=== PATIENT | male | born 1945 | race Caucasian/White ===

== ENCOUNTER 2017-11-08 09:31 | Day surgery (SDC) | payer MEDICARE ==
[~2017-11-08] VITALS: Ht 185.4 cm; Wt 99.8 kg
[~2017-11-08 09:31] MED LIST: ANAS1 PO; CARV25 PO; CHOL10002 PO; FISH OIL 1,0001 EAC2 PO; LOSA50 PO; Norvasc2.5 MG PO; VITAMIN C500 MG PO
== END 2017-11-08 22:57 | disposition home or self-care (01) ==
LOC: ORSCMMR 09:31 → ORD 10:30 → ORSCMMR 10:30
PROVIDERS: Internal Medicine Gastroenterology
PROC: 0DBM8ZX Excision of Descending Colon, Via Natural or Artificial Opening Endoscopic, Diagnostic (ICD-10-PCS; principal; 2017-11-08 10:30)
PROC: 0DBN8ZX Excision of Sigmoid Colon, Via Natural or Artificial Opening Endoscopic, Diagnostic (ICD-10-PCS; principal; 2017-11-08 10:30)
PROC: 0DBP8ZX Excision of Rectum, Via Natural or Artificial Opening Endoscopic, Diagnostic (ICD-10-PCS; principal; 2017-11-08 10:30)
DX: Z12.11 Encounter for screening for malignant neoplasm of colon (principal); D12.4 Benign neoplasm of descending colon; D12.5 Benign neoplasm of sigmoid colon; K62.1 Rectal polyp; K57.30 Diverticulosis of large intestine without perforation or abscess without bleeding; Z86.010 Personal history of colon polyps; I10 Essential (primary) hypertension; G47.33 Obstructive sleep apnea (adult) (pediatric); Z79.899 Other long term (current) drug therapy
CPT/HCPCS: 88305; J2250; J3010; J7120

== ENCOUNTER 2018-09-11 08:06 | Inpatient (IN) | payer MEDICARE ==
[~2018-09-11] VITALS: Ht 182.9 cm; Wt 100.7 kg
[~2018-09-11 08:06] MED LIST changes: +ASCO500 PO; +DHEA PO
--- NOTE | 2018-09-11 10:02 | NUR ---
Ambulatory in Day Surgery Surgical site prepped with 2% Chlorhexidine cloth wipe. History, Chart, Medications and Allergies reviewed before start of procedure.Lungs clear T/O to Auscultation. Patient confirms NPO status and agrees with scheduled surgery. Patient reports completing Chlorhexadine shower X2 prior to admission to hospital. PT C/O OF PAIN IN RIGHT SHOULDER WHEN REACHING UP FOR PREP. WARM BLANKET AND EXTRA PILLOW PROVIDED. PAS AND CHIKI HOSE ON W/O DIFFICULTY. AT BEDSIDE. TWO PERSONAL BAGS STICKERED AND PLACED UNDER BED.
--- NOTE | 2018-09-12 04:52 | NUR ---
SHIFT SUMMARY: PT POD 1 R TSA. A&O X4. VS WNL. PAIN MANAGED WITH SCHED TORADOL AND TYLENOL. GIVEN OXY 10 MG TWICE PER EMAR. AQUACEL DRESSING, ICE PACK AND IMMOBILIZER PLACED TO R SHOULDER. SKUDS AND STOCKINGS IN PLACE. SALINE LOCKED. DRINKING PLENTY OF PO FLUIDS. JERRY REG DIET. DENIES ANY N/V. 1 SBA TO BATHROOM WITH WALKER. AMBULATED X2. JERRY ACTIVITY WELL. PT ENCOURAGED TO AMBULATE AND USE INSCENTIVE SPIROMETER. AT BEDSIDE. NO CONCERNS AT THIS TIME.
[2018-09-12 05:59] LABS: BASOPHILS ABSOLUTE AUTO 0.03 K/mm3 (0.00-0.23); BASOPHILS PERCENT AUTO 0 % (0-2); EOSINOPHILS ABSOLUTE AUTO 0.04 K/mm3 (0.00-0.68); EOSINOPHILS PERCENT AUTO 0 % (0-6); Hematocrit 37.8 % (37.0-53.0); Hemoglobin 12.8 g/dL (13.5-17.5); IMMATURE GRAN ABSOLUTE AUTO 0.05 K/mm3 (0.00-0.10); IMMATURE GRAN PERCENT AUTO 0 % (0-1); LYMPHOCYTES ABSOLUTE AUTO 1.25 K/mm3 (0.84-5.20); LYMPHOCYTES PERCENT AUTO 10 % (21-46); MONOCYTES PERCENT AUTO 8 % (4-13); Mean Corpuscular HGB 29.9 pg (26.0-34.0); Mean Corpuscular HGB Conc 33.9 g/dL (31.5-36.5); Mean Corpuscular Volume 88 fL (80-100); Mean Platelet Volume 10.4 fL (9.1-12.4); NEUTROPHILS PERCENT AUTO 80 % (41-73); Platelet Count 196 K/mm3 (150-400); RDW Coefficient Variation 13.5 % (11.7-14.2); RDW Standard Deviation 43.8 fL (35.1-46.3); Red Blood Cell Count 4.28 M/mm3 (4.30-5.90); White Blood Cell Count 12.07 K/mm3 (4.00-11.30)
[2018-09-12 06:18] LABS: Bun/Creatinine Ratio 17.1 (12.0-20.0); Calcium, Blood 7.6 mg/dL (8.5-10.1); Creatinine, Blood 1.29 mg/dL (0.60-1.20); Magnesium, Blood 2.5 mg/dL (1.6-2.4); Potassium, Blood 3.2 mmol/L (3.5-5.5)
--- NOTE | 2018-09-12 14:04 | NUR ---
09/12/18 1404 Dana Chew VERIFICATIONS: CHART EDIT.
--- NOTE | 2018-09-12 14:29 | NUR ---
PAIN MANAGEMENT DISCUSSED PAIN MANAGEMENT ISSUES WITH DR. SOLORZANO. INFORMED HER THAT IV DILAUIDID WAS GIVEN TO MANAGE PAIN AND TORADOL WAS HELD FOR ELEVATED CREATININE. VSS. WILL MONITOR UNTIL REPORT TO ONCOMING RN.
[2018-09-12] MEDS ORDERED: ACET500 PO (14:51)
[2018-09-12] MEDS ORDERED: OXYC5 PO (14:52)
--- NOTE | 2018-09-12 18:23 | NUR ---
patient discharged home with his . Frances Reyna RN
--- NOTE | 2018-09-12 18:29 | NUR ---
DISCHARGE PT WAS PROVIDED WITH WRITTEN AND VERBAL DISCHARGE INSTRUCTIONS. PT AND FAMILY VERBALIZED UNDERSTANDING AFTER QUESTIONS WERE ANSWERED. DRESSINGS PROVIDED. ESCORTED OUT IN W/C BY DION RUBIN.
== END 2018-09-12 18:24 | disposition home or self-care (01) | DRG 483 ==
LOC: SURS 08:06 → PRE IP 10:00 → SURS 18:12
PROVIDERS: ADMIT Orthopaedic Surgery
PROC: 0RRJ0JZ Replacement of Right Shoulder Joint with Synthetic Substitute, Open Approach (ICD-10-PCS; principal; 2018-09-11 10:00)
DX: M19.011 Primary osteoarthritis, right shoulder (principal); I10 Essential (primary) hypertension
CPT/HCPCS: 36415; 73030; 80048; 83735; 85025; 88300; 97110; 97116; 97162; 97166; 97535; C1776; J0171; J0690; J0735; J1170; J1885; J2250; J2405; J2795; J3010; J7120

== ENCOUNTER 2019-05-24 15:54 | Inpatient (IN) | payer MEDICARE ==
[~2019-05-24] VITALS: Ht 180 cm; Wt 106.7 kg
[~2019-05-24 15:54] MED LIST changes: +ACET500 PO; +OXYC5 PO
--- NOTE | 2019-05-28 07:42 | NUR ---
Ambulatory in Day Surgery History, Chart, Medications and Allergies reviewed before start of procedure.Patient confirms NPO status and agrees with scheduled surgery. Patient reports completing Chlorhexadine shower X2 prior to admission to hospital.Surgical site prepped with 2% Chlorhexidine cloth wipe. Lungs clear T/O to Auscultation. PT HEARING AIDS REMOVED AND IN PACU
--- NOTE | 2019-05-28 11:26 | NUR ---
PT ARRIVED TO UNIT VIA BED. AT BEDSIDE. PT REPORTS PAIN OF 5/10 BUT TOLERABLE. BULKY DRESSING IN PLACE C/D/I. POLAR CHILO ON. PATIENT RESTING IN BED 2L VIA NASAL CANULA. PATIENT AAOX4. RESPIRATORY IN ROOM TO SET UP PATIENTS CPAP MACHINE.
--- NOTE | 2019-05-28 16:42 | NUR ---
SHIFT SUMMARY S/P R TOTAL HIP. PATIENT IS ALERT AND ORIENTED X4, PAIN MANAGED PER EMAR WITH 1 TIME PRN GIVEN FOR BREAKTHROUGH PAIN. POLAR CHILO IN PLACE, BULKY DRESSING ON RIGHT HIP C/D/I. PATIENT TOLERATING PO WELL, DENIES NAUSEA. WORKED WITH THERAPY TODAY FWW, GB. CONTINUE TO ENCOURAGE AMBULATION. CPAP SET UP BY RESPIRATORY, PATIENT WEARS WHEN SLEEPING. RA OTHERWISE.
--- NOTE | 2019-05-28 18:18 | NUR ---
PT WAS ABLE TO STAND AND VOID. 500CC OUT
[2019-05-29 04:25] LABS: BASOPHILS ABSOLUTE AUTO 0.04 K/mm3 (0.00-0.23); BASOPHILS PERCENT AUTO 0 % (0-2); EOSINOPHILS ABSOLUTE AUTO 0.15 K/mm3 (0.00-0.68); EOSINOPHILS PERCENT AUTO 1 % (0-6); Hematocrit 36.3 % (37.0-53.0); Hemoglobin 12.3 g/dL (13.5-17.5); IMMATURE GRAN ABSOLUTE AUTO 0.06 K/mm3 (0.00-0.10); IMMATURE GRAN PERCENT AUTO 1 % (0-1); LYMPHOCYTES ABSOLUTE AUTO 1.26 K/mm3 (0.84-5.20); LYMPHOCYTES PERCENT AUTO 11 % (21-46); MONOCYTES ABSOLUTE AUTO 1.07 K/mm3 (0.16-1.47); MONOCYTES PERCENT AUTO 10 % (4-13); Mean Corpuscular HGB Conc 33.9 g/dL (31.5-36.5); Mean Corpuscular Volume 89 fL (80-100); Mean Platelet Volume 10.7 fL (9.1-12.4); NEUTROPHILS ABSOLUTE AUTO 8.74 K/mm3 (1.96-9.15); NEUTROPHILS PERCENT AUTO 77 % (41-73); Platelet Count 189 K/mm3 (150-400); RDW Coefficient Variation 12.9 % (11.7-14.2); RDW Standard Deviation 42.2 fL (35.1-46.3); White Blood Cell Count 11.32 K/mm3 (4.00-11.30)
[2019-05-29 04:43] LABS: Anion Gap 5 mmol/L (6-16); Blood Urea Nitrogen 19 mg/dL (8-24); Bun/Creatinine Ratio 15.3 (12.0-20.0); CO2, Blood 31 mmol/L (21-32); Calcium, Blood 7.8 mg/dL (8.5-10.1); Chloride, Blood 101 mmol/L (98-108); Creatinine, Blood 1.24 mg/dL (0.60-1.20); Glomerular Filtration Rate >60 (60-); Glucose, Blood 124 mg/dL (70-99); Magnesium, Blood 1.8 mg/dL (1.6-2.4); Potassium, Blood 2.6 mmol/L (3.5-5.5); Sodium, Blood 137 mmol/L (136-145)
--- NOTE | 2019-05-29 07:37 | NUR ---
SHIFT SUMMARY PT EATING AND DRINKING PT BEEN ASSISTED WITH ADL'S PRN. PT BEEN MED FOR PAIN PRN. PT VOIDING.
--- NOTE | 2019-05-29 16:52 | NUR ---
SHIFT SUMMARY PT A&OX4, VSS, POD1 R BECKY, AQUACEL CDI, POLAR CHILO ON, TEDS/SCDS ON. PAIN MANAGEMENT HAS BEEN DIFFICULT; PT DECIDED TO STAY THE NIGHT AND WORK WITH PT AGAIN AT 1000 TOMORROW. JERRY PO, DENIES N&V. VOIDING WELL. AMB W/FWW & GB TO BRP/CHAIR/HALLWAY. WILL REPORT TO SYLVIA VIRK.
--- NOTE | 2019-05-29 20:05 | NUR ---
SPOKE WITH DR. DURAN REGARDING POTASSIUM OF 2.6 AND CALCIUM OF 7.8. NEW ORDER FOR IV CALCIUM GLUCONATE, IV AND PO K+.
--- NOTE | 2019-05-30 04:27 | NUR ---
SHIFT SUMMARY: PT REPORTS FEELING MUCH BETTER THIS SHIFT. POTASSIUM AND CALCIUM LOW UPON LABS. HOSPITALIST CONSULTED. PT GIVEN IV AND PO POTASSIUM AND IV CALCIUM. PAIN MANAGED WITH TORADOL, TYLENOL AND 10MG OXY PER EMAR. RATING PAIN A 2/10 ON PAIN SCALE. DRESSINGS CDI WITH POLAR PACK IN PLACE. AMBULATING TO BATHROOM W/FWW WITH MINIMAL TO MODERATE ASSISTANCE. JERRY PO AND SALINE LOCKED. VOIDING WELL. PLAN FOR PHYSICAL THERAPY AND POSSIBLE DISCHARGE TODAY.
[2019-05-30 04:36] LABS: Anion Gap 6 mmol/L (6-16); Blood Urea Nitrogen 18 mg/dL (8-24); Bun/Creatinine Ratio 15.1 (12.0-20.0); CO2, Blood 30 mmol/L (21-32); Calcium, Blood 8.9 mg/dL (8.5-10.1); Chloride, Blood 102 mmol/L (98-108); Creatinine, Blood 1.19 mg/dL (0.60-1.20); Glomerular Filtration Rate >60 (60-); Glucose, Blood 108 mg/dL (70-99); Potassium, Blood 3.3 mmol/L (3.5-5.5); Sodium, Blood 138 mmol/L (136-145)
[2019-05-30] MEDS ORDERED: OXYC5 PO (09:32)
--- NOTE | 2019-05-30 12:46 | NUR ---
Patient up to Ambulate independently. Gait steady. Discharge instructions reviewed with patient. Patient verbalizes understanding. Copy given to patient to take home. Dressing to procedure site clean, dry, intact with no visible drainage, swelling, erythema or bruising noted. Pre-Op teaching done. Pt verbalizes understanding. Pt's at bedside, all personal belongings sent home with pt. Discharged via wheelchair to private car for ride home.
== END 2019-05-30 12:44 | disposition home or self-care (01) | DRG 470 ==
LOC: SURS 05-28 06:00 → PRE IP 05-28 07:30 → SURS 05-28 12:20
PROVIDERS: Internal Medicine; ADMIT Orthopaedic Surgery
PROC: 0SR902A Replacement of Right Hip Joint with Metal on Polyethylene Synthetic Substitute, Uncemented, Open Approach (ICD-10-PCS; principal; 2019-05-28 07:30)
DX: M16.11 Unilateral primary osteoarthritis, right hip (principal); E87.6 Hypokalemia; E83.51 Hypocalcemia; N18.3 Chronic kidney disease, stage 3 (moderate); I12.9 Hypertensive chronic kidney disease with stage 1 through stage 4 chronic kidney disease, or unspecified chronic kidney disease; G47.33 Obstructive sleep apnea (adult) (pediatric); E66.9 Obesity, unspecified; Z68.32 Body mass index [BMI] 32.0-32.9, adult; Z87.891 Personal history of nicotine dependence
CPT/HCPCS: 36415; 72170; 80048; 83735; 85025; 86850; 86900; 86901; 88300; 94762; 97110; 97116; 97161; 97166; 97530; 97535; C1713; C1776; J0171; J0610; J0690; J0735; J1170; J1885; J2250; J2704; J2795; J3010; J3480; J7120

== ENCOUNTER 2020-05-19 10:37 | Emergency (ER) | payer MEDICARE ==
[~2020-05-19] VITALS: Ht 182.9 cm; Wt 102.1 kg
[2020-05-19] MEDS ORDERED: Bactrim Ds Tab1 EACH PO (11:42)
[2020-05-19] MEDS ORDERED: CEPH500 PO (11:42)
== END 2020-05-19 15:00 | disposition home or self-care (01) ==
LOC: ER 10:37
DX: S61.032A Puncture wound without foreign body of left thumb without damage to nail, initial encounter (principal); I10 Essential (primary) hypertension; Z79.899 Other long term (current) drug therapy; Z87.891 Personal history of nicotine dependence; Z23 Encounter for immunization; W26.8XXA Contact with other sharp object(s), not elsewhere classified, initial encounter
CPT/HCPCS: 73140; 90471; 90714; 99283-25; J0696

== ENCOUNTER 2024-07-08 10:04 | Emergency (ER) | payer MEDICARE ==
[~2024-07-08] VITALS: Ht 182.9 cm; Wt 104.3 kg
[~2024-07-08 10:04] MED LIST changes: +Bactrim Ds Tab1 EACH PO; +CEPH500 PO
[2024-07-08 10:51] VITALS: BP 167/95
[2024-07-08] MEDS ORDERED: AMLO10 PO ×2 (10:56→11:03)
[2024-07-08] MEDS ORDERED: POTCHL20ER PO ×2 (10:56→11:03)
[2024-07-08] MEDS ORDERED: CARV25 PO ×2 (10:56→11:03)
[2024-07-08] MEDS ORDERED: VYNDAMAX61 MG PO ×2 (10:57→11:03)
[2024-07-08] MEDS ORDERED: ATOR20 PO ×2 (10:57→11:03)
[2024-07-08] MEDS ORDERED: FURO20 PO ×2 (10:57→11:03)
[2024-07-08] MEDS ORDERED: TAMS.4ER PO ×2 (10:57→11:03)
[2024-07-08] MEDS ORDERED: LOSA50 PO ×2 (10:57→11:03)
== END 2024-07-08 11:04 | disposition home or self-care (01) ==
LOC: ER 10:04
DX: Z76.0 Encounter for issue of repeat prescription (principal); Z87.891 Personal history of nicotine dependence; I10 Essential (primary) hypertension
CPT/HCPCS: 99281

== ENCOUNTER 2025-04-09 11:14 | Emergency (ER) | payer MEDICARE ==
[~2025-04-09] VITALS: Ht 182.9 cm; Wt 98.4 kg
[~2025-04-09 11:14] MED LIST changes: +ALDACTONE25 MG PO; +AMLO10 PO; +ASPI81CH PO; +ATOR20 PO; +ATOR40TA PO; +CARVEDILOL25 M9 PO; +CLOP75 PO; +FURO20 PO; +FUROSEMIDE20 MG PO; +HYDCHL12.5 PO; +KLOR-CON 1010 ME9 PO; +LOSARTAN POTAS100 M1 PO; +POTCHL20ER PO; +TAMS.4ER PO; +TAMSULOSIN HCL0.4 M1 PO; +VYNDAMAX61 MG PO
[2025-04-09 11:55] LABS: BASOPHILS ABSOLUTE AUTO 0.08 K/mm3 (0.00-0.23); BASOPHILS PERCENT AUTO 1 % (0-2); EOSINOPHILS ABSOLUTE AUTO 0.16 K/mm3 (0.00-0.68); EOSINOPHILS PERCENT AUTO 2 % (0-6); Hematocrit 42.2 % (37.0-53.0); Hemoglobin 14.5 g/dL (13.5-17.5); IMMATURE GRAN ABSOLUTE AUTO 0.02 K/mm3 (0.00-0.10); IMMATURE GRAN PERCENT AUTO 0 % (0-1); LYMPHOCYTES ABSOLUTE AUTO 1.26 K/mm3 (0.84-5.20); LYMPHOCYTES PERCENT AUTO 17 % (21-46); MONOCYTES ABSOLUTE AUTO 0.61 K/mm3 (0.16-1.47); MONOCYTES PERCENT AUTO 8 % (4-13); Mean Corpuscular HGB Conc 34.4 g/dL (31.5-36.5); Mean Corpuscular Volume 88 fL (80-100); NEUTROPHILS ABSOLUTE AUTO 5.48 K/mm3 (1.96-9.15); NEUTROPHILS PERCENT AUTO 72 % (41-73); NRBC ABSOLUTE 0.00 K/mm3 (0.00-0.02); NRBC Auto 0.0 /100 WBC (0.0-0.2); Platelet Count 215 K/mm3 (150-400); RDW Coefficient Variation 14.1 % (11.7-14.2); RDW Standard Deviation 45.1 fL (35.1-46.3)
[2025-04-09 12:37] LABS: Anion Gap 6.0 mmol/L (3-11); Blood Urea Nitrogen 28.0 mg/dL (8-24); CO2, Blood 26.0 mmol/L (21-32); Calcium, Blood 8.3 mg/dL (8.5-10.1); Chloride, Blood 111.0 mmol/L (98-108); Creatinine, Blood 1.31 mg/dL (0.60-1.20); Glucose, Blood 100.0 mg/dL (70-99); Magnesium, Blood 2.2 mg/dL (1.6-2.4); Potassium, Blood 3.5 mmol/L (3.5-5.5); Sodium, Blood 139.0 mmol/L (136-145)
[2025-04-09] MEDS ORDERED: DOXY100 PO ×2 (14:33→14:43)
[2025-04-09] MEDS ORDERED: AMOCLA875 PO ×2 (14:33→14:43)
[2025-04-09 15:15] VITALS: BP 163/100
== END 2025-04-09 15:42 | disposition home or self-care (01) ==
LOC: ER 11:14
PROVIDERS: Emergency Medicine
DX: I16.0 Hypertensive urgency (principal); I10 Essential (primary) hypertension; J18.9 Pneumonia, unspecified organism; Z91.81 History of falling; Z87.891 Personal history of nicotine dependence; Z86.73 Personal history of transient ischemic attack (TIA), and cerebral infarction without residual deficits; Z79.82 Long term (current) use of aspirin; Z79.02 Long term (current) use of antithrombotics/antiplatelets; Z79.899 Other long term (current) drug therapy
CPT/HCPCS: 70450; 71045; 80048; 82607; 83735; 84484; 85025; 93005; 93010; 99284-25; A9270